=== PATIENT | female | born 1955 | race African-American/Black ===

== ENCOUNTER 2016-10-16 18:57 | Emergency (ER) | payer MEDICAID ==
[~2016-10-16] VITALS: Ht 162.6 cm; Wt 78.0 kg
[~2016-10-16 18:57] MED LIST: ALLO100T PO; ASPI-518; ATEN-176; ATOR20TA PO; CITA20TA11 PO; DIVA500T51 PO; FERR325T41 PO; GLIP10TA10; INSU3INS6 SUBCUT; METF1000 PO; SERT50TA; VITA1TAB18 PO
[2016-10-17] MEDS ORDERED: IBUPROFEN 600MG TABLET PO ONE (01:00)
[2016-10-17] MEDS ORDERED: TETRACAINE 0.5% OPHTH DROPS 2ML OP ONE (01:00)
[2016-10-17] MEDS ORDERED: FLUORESCEIN SODIUM 1MG/STRIP OP ONE (01:00)
[2016-10-17 02:00] VITALS: BP 153/91
== END 2016-10-17 03:35 | disposition home or self-care (01) ==
LOC: ER 20:32
DX: H10.31 Unspecified acute conjunctivitis, right eye (principal); M65.30 Trigger finger, unspecified finger; M25.511 Pain in right shoulder; M19.90 Unspecified osteoarthritis, unspecified site; F32.9 Major depressive disorder, single episode, unspecified; E11.9 Type 2 diabetes mellitus without complications; I10 Essential (primary) hypertension; Z91.013 Allergy to seafood; Z79.4 Long term (current) use of insulin; Z79.82 Long term (current) use of aspirin; Z79.899 Other long term (current) drug therapy; Z90.49 Acquired absence of other specified parts of digestive tract
CPT/HCPCS: 99283; Z7610

== ENCOUNTER 2017-06-30 16:54 | Emergency (ER) | payer MEDICAID ==
[~2017-06-30] VITALS: Ht 162.6 cm; Wt 87.0 kg
[~2017-06-30 16:54] MED LIST changes: +FERR-71 PO; -FERR325T41 PO
[2017-06-30] MEDS ORDERED: TETRACAINE 0.5% OPHTH DROPS 4ML LEFTEYE ONE (18:00)
[2017-06-30] MEDS ORDERED: FLUORESCEIN SODIUM 1MG/STRIP LEFTEYE ONE (18:00)
[2017-06-30] MEDS ORDERED: IBUPROFEN 600MG TABLET PO ONE (19:15)
[2017-06-30 19:17] VITALS: BP 148/79
== END 2017-06-30 19:24 | disposition home or self-care (01) ==
LOC: ER 17:20
DX: H10.9 Unspecified conjunctivitis (principal); E11.9 Type 2 diabetes mellitus without complications; I10 Essential (primary) hypertension; Z79.4 Long term (current) use of insulin; Z79.82 Long term (current) use of aspirin; Z96.659 Presence of unspecified artificial knee joint
CPT/HCPCS: 99283